=== PATIENT | female | born 1955 | race Caucasian/White ===

== ENCOUNTER 2021-11-17 12:54 | Outpatient (CLI) | payer MEDICARE, SELFPAY ==
--- NOTE | ~2021-11-17 | XR_ITS ---
XR abdomen/kub 1V 11/17/2021 13:16 Indication: Renal stones Procedure: KUB Comparison: No prior studies for comparison. Findings: There are bilateral renal stones, largest located centrally in the right kidney measuring u p to 2.5 cm. There are cholecystectomy clips. Bowel gas pattern nonobstructive. There are pelvic phle boliths. There is a lumbar spondylosis. Impression: 1: Bilateral nephrolithiasis. Reviewed, dictated and finalized at location A. Impression: 1: Bilateral nephrolithiasis.
== END 2021-11-17 12:55 | disposition home or self-care (01) ==
PROVIDERS: PCP Urology; Visit Provider Urology
DX: N20.0 Calculus of kidney (principal)
CPT/HCPCS: 74018

== ENCOUNTER 2021-12-12 08:25 | Outpatient (CLI) | payer MEDICARE, SELFPAY ==
--- NOTE | ~2021-12-12 | XR_ITS ---
XR abdomen/kub 1V 12/12/2021 08:43 Indication: Right kidney stone Procedure: KUB Comparison: 11/17/2021 Findings: Bowel gas pattern is nonobstructive. There are bilateral renal stones. There are cholecyste ctomy clips. Interval placement of right internal ureteral stent. There are multiple right ureteral s tones. Interval resolution of largest dominant stone in the right kidney. Impression: 1: Bilateral renal and multiple right ureteral stones. Right internal ureteral stent in expected posi tion. Reviewed, dictated and finalized at location A. Impression: 1: Bilateral renal and multiple right ureteral stones. Right internal ureteral stent in expected position.
== END 2021-12-12 08:26 | disposition home or self-care (01) ==
PROVIDERS: Visit Provider Urology
DX: N20.0 Calculus of kidney (principal); N20.1 Calculus of ureter; Z96.0 Presence of urogenital implants
CPT/HCPCS: 74018

== ENCOUNTER 2022-05-15 12:04 | Outpatient (CLI) | payer MEDICARE, SELFPAY ==
--- NOTE | ~2022-05-15 | XR_ITS ---
Supine and upright views of the abdomen Clinical history: Kidney stones COMPARISON: 12/12/2021 Findings: Bowel gas pattern is nonspecific. No evidence for obstruction or free air. Possible 8 mm mi d left ureteral stone, adjacent to the L4 vertebral body, not seen in this location on prior exam. No other definite renal stones clearly identified. Cholecystectomy clips present.. Osseous structures a re intact. Impression: Questionable 8 mm left mid ureteral stone. Reviewed, dictated and finalized at location . 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
== END 2022-05-15 12:05 | disposition home or self-care (01) ==
PROVIDERS: Visit Provider Nurse Practitioner Adult Health
DX: N20.1 Calculus of ureter (principal)
CPT/HCPCS: 74018

== ENCOUNTER 2022-05-18 02:37 | Day surgery (SDC) | payer MEDICARE, SELFPAY ==
[2022-05-17 13:03] VITALS: BMI 43.0
--- NOTE | 2022-05-17 13:29 | PC.NURSE ---
Report to the Outpatient Waiting Room, entrance under the green pavilion located off [facility], at time __1030 on date __05/18/22 . Planned Procedure Time: ___1230 . Time changes happen often and if your time is changed the preop area will call you the afternoon before. - You and your visitor will be asked to self-screen and do not enter if you have any COVID symptoms. - Only one visitor is requested with a max of two and NO children visitors are allowed at this time. - The patient visitor may be requested to leave or wait in car when not with patient due to distancing restrictions. - A mask is optional within the hospital at this time. Patients may have clear liquids (water, carbonated beverages, clear teas, apple juice) until 3 hours prior to surgery (0930 AM) with a maximum of 20 ounces. - No food from midnight until time of surgery - Infants may have breast milk until 4 hours before surgery, infant formula 6 hours prior to surgery. - Children will be allowed to drink immediately following surgery. If applicable, please bring a bottle or sippy cup to assist with drinking. Juice, water, soda, and popsicles are readily available. For infants on formula, please bring formula the day of surgery. Pacifiers are allowed. Take the following medications with a SIP of water the morning of surgery: __CITALOPRAM, LAMOTRIGINE__ DO NOT STOP ANY OF YOUR OTHER PRESCRIPTION MEDICATIONS PRIOR TO SURGERY ?EXCEPT THE FOLLOWING Medications to discontinue per physician N/A Date to take last dose Please no make-up, nail icelandic, hairspray, perfume, deodorant, or body powder the day of surgery. No jewelry (including any body piercings) or valuables the day of surgery, leave them at home. Please take a shower or bath the night before, or the morning of, surgery with an antibacterial soap. Wear comfortable, loose fitting clothing. Children are encouraged to wear pajamas. - Jewelry must be removed prior to entering the operating room. Rings and piercings that are not removed may be cut off. - The hospital will not accept responsibility for valuables. - Please leave all valuables, including medications, at home the day of surgery. If you are going home after surgery, a licensed mobile lounge driver or operator must drive you home. - NO public transportation without another adult if you receive anesthesia. - We recommend that an adult stay with you for 24 hours following discharge. - We also recommend that you do not drive, make important decision, drink alcoholic beverages, or take any drugs that were not prescribed by your health care provider for at least 24 hours after your discharge time. For Pediatric surgeries, we recommend two adults accompany the child home. Follow any additional instructions given to you from your surgeon. If you or anyone in your household have experienced Covid symptoms in the past week, please notify your surgeon or the nurse liaison at the phone number below for possible testing. Telephone instructions given to ___PATIENT and asked if any additional questions and then verbalized understanding. Patient advised to call surgeon office or pre surgery nurse liaison [phone] if any additional questions.
[2022-05-18] VITALS (9 sets, daily range): BP systolic 120–130; BP diastolic 61–68; PULSE 70–92; RESP 12–18; TEMP 36.6; O2SAT 93–100
--- NOTE | ~2022-05-18 | XR_ITS ---
EXAMINATION: XR abdomen/kub 1V DATE: 05/18/2022 10:22 INDICATION: Kidney stone. TECHNIQUE: A supine view of the abdomen on 2 radiographs was obtained. COMPARISON: Abdomen radiographs 05/15/2022, 12/12/2021 FINDINGS: There are no dilated loops of bowel. Surgical clips in the right upper quadrant are likely from cholecystectomy. There is a surgical clip in the pelvis. There is a phlebolith in the pelvis. Th ere is a 9 x 4 mm calcification to the left of L4. IMPRESSION: 1. 9 x 4 mm calcification to the left of L4 without change from 05/15/2022 and new from 12/12/2021, whi ch may be a stone in the proximal left ureter. Reviewed, dictated and finalized at location A. 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 9 x 4 mm calcification to the left of L4 without change from 05/15/2022 and n ew from 12/12/2021, which may be a stone in the proximal left ureter.
--- NOTE | 2022-05-18 06:50 | WPDHPUPDATE1 ---
History and Physical Update Update Date/Time: 05/18/22 06:50 History and Physical has been reviewed, including an updated exam of the patient. There are NO changes in the patient's condition. Risks, benefits, and alternatives have been discussed and questions answered. Patient agrees to proceed with procedure.
--- NOTE | 2022-05-18 11:12 | P.PNAN_ITS ---
Anes - Initial Pre Proc Eval Procedure: Operation Date: 05/18/22 12:30 Proposed Procedures p Left Extracorporeal Shock Wave Lithotripsy - Amador Krause MD Date/Time: 05/18/22 11:12 Surgeon: Amador Krause MD Pre Op Diagnosis: left ureteral stones Patient Data Age: 66 Gender: F Height: 1.57 m Weight: 106.3 kg Last Vital Signs Temp 36.6 C 05/18/22 10:31 Pulse 70 05/18/22 10:31 Resp 16 05/18/22 10:31 BP 130/68 05/18/22 10:31 Pulse Ox 97 05/18/22 10:31 O2 Del Method Room Air 05/18/22 10:31 Allergies Allergy/AdvReac Type Severity Reaction Status Date / Time No Known Allergies Allergy Verified 05/18/22 10:23 Home Medications Medication Instructions Recorded Confirmed Type allopurinol 300 mg tablet 300 mg [facility] 05/17/22 05/17/22 History citalopram 40 mg tablet 40 mg [facility] 05/17/22 05/17/22 History glimepiride 4 mg tablet 4 mg QA 05/17/22 05/17/22 History insulin glargine 100 unit/mL (3 40 unit subcut 05/17/22 05/17/22 History mL) subcutaneous pen (Lantus Solostar U-100 Insulin) lamotrigine 150 mg tablet 150 mg [facility] 05/17/22 05/17/22 History lorazepam 0.5 mg tablet 0.5 mg 05/17/22 05/17/22 History metformin 500 mg tablet,extended 500 mg PO [facility] 05/17/22 05/17/22 History release 24 hr nebivolol 10 mg tablet 10 mg 05/17/22 05/17/22 History pantoprazole 40 mg tablet,delayed 40 mg PO [facility] 05/17/22 05/17/22 History release telmisartan 20 mg tablet 20 mg [facility] 05/17/22 05/17/22 History trazodone 50 mg tablet 50 mg 05/17/22 05/17/22 History valacyclovir 1 gram tablet 1,000 mg EVERY OTHER DAY 05/17/22 05/17/22 History Patient hx anesthesia problems: none Family hx anesthesia problems: none Results Review: All pre-operative results and documents have been reviewed as part of the pre- operative evaluation. [facility] Social History Social History Smoking packs per day: 0.5 Smoking cigarettes per day: 10.0 Years smoked: 30 Smoking pack-years: 15.00 Smoking status: Former smoker Tobacco type: cigarettes Second hand tobacco smoke exposure: No Smoking end date: 04/22/07 Substance use: never Substance use type: does not use Living arrangements: alone Spiritual care concerns: No Anes - Eval Final PreProcedure Day of Procedure 05/18/22 11:12 Patient weight: morbidly obese Lungs: clear to auscultation Airway: Mallampati scale class II Neurological: alert and oriented Last oral intake: >/= 8 hours ASA classification: III Emergent: no Anesthetic plan: proceed Anesthesia type and monitoring: general LMA and standard monitoring Results Review: All pre-operative results and documents have been reviewed as part of the pre- operative evaluation. Informed Consent: The patient's anesthetic plan and its attendant risks and benefits were discussed with the patient/family/POA. Questions were solicited and answers provided to the satisfaction of the patient/family/POA.
[2022-05-18] MEDS: ceFAZolin 2 GM/D5W 50 ML 2 GM/50 ML BAG IVPB (11:18)
[2022-05-18 11:31] LABS: INR 1.1; Partial Thromboplastin Time 30.6 SECONDS (22.3-36.8); Prothrombin Time 13.4 Seconds (11.1-14.7)
--- NOTE | 2022-05-18 11:49 | W.PM.PROC2 ---
Procedure Note - Detailed Date of Procedure 05/18/22 Pre-op Diagnosis Left ureteral stone Post-op Diagnosis Same Procedure Performed Left ESWL Surgeon Amador Krause MD Anesthesia General Description of Procedure The patient was brought to the operative suite where she was placed in the supine position on the Dornier lithotripsy table. The focal point of the lithotripter was placed at a 8-9mm left mid-ureteral calculus. A total of 3000 shocks were delivered at a power setting of 6. There appeared to be good fragmentation of the stone. The patient tolerated the procedure well and was taken to the recovery room in good condition. Drains No Packing No Pathology None sent Complications No immediate complications
[2022-05-18] MEDS: LACTATED RINGERS 1,000 ML 30 ML IV CONT ×2 (12:09)
[2022-05-18 12:16] LABS: Glucose Point of Care 108 mg/dl (65-105)
== END 2022-05-18 14:10 | disposition home or self-care (01) ==
PROVIDERS: Visit Provider Urology
PROC: (CPT 50590; principal; 2022-05-18 12:30)
DX: N20.1 Calculus of ureter (principal); Z79.4 Long term (current) use of insulin; Z79.84 Long term (current) use of oral hypoglycemic drugs; Z87.891 Personal history of nicotine dependence; E66.01 Morbid (severe) obesity due to excess calories; Z68.41 Body mass index [BMI] 40.0-44.9, adult
CPT/HCPCS: 50590; 36415; 74018; 82948; 85610; 85730; J0690; J1100; J2250; J2405; J2704; J3010; J7120

== ENCOUNTER 2022-06-05 11:40 | Outpatient (CLI) | payer MEDICARE, SELFPAY ==
--- NOTE | ~2022-06-05 | XR_ITS ---
EXAM: XR abdomen/kub 1V DATE: 06/05/2022 11:58 HISTORY: N20.1 - Calculus of ureter, LEFT SIDE . COMPARISON: 05/18/2022. FINDINGS: Clear lung bases. Cholecystectomy clips. Surgical clip projecting within the pelvic ring. Normal bowel gas pattern. No organomegaly. Pelvic phleboliths and atherosclerotic calcification. Dege nerative change in the lower lumbar spine and bilateral hips. IMPRESSION: No radiographic evidence of nephrolithiasis. Reviewed, dictated and finalized at location K. COMPLIANCE
== END 2022-06-05 11:41 | disposition home or self-care (01) ==
PROVIDERS: Visit Provider Urology
DX: N20.1 Calculus of ureter (principal)
CPT/HCPCS: 74018

== ENCOUNTER 2022-12-17 14:44 | Outpatient (CLI) | payer MEDICARE, SELFPAY ==
--- NOTE | ~2022-12-17 | XR_ITS ---
EXAMINATION: XR abdomen/kub 1V DATE: 12/17/2022 15:02 INDICATION: Left ureteral stone. TECHNIQUE: A supine view of the abdomen on 2 radiographs was obtained. COMPARISON: Abdomen radiographs 06/05/2022 FINDINGS: There are no dilated loops of bowel. There are vascular calcifications in the pelvis. Surgi ange clips in the right upper quadrant are likely from cholecystectomy. IMPRESSION: 1. No visible urolithiasis. Reviewed, dictated and finalized at location E. IMPRESSION: 1. No visible urolithiasis.
== END 2022-12-17 14:45 | disposition home or self-care (01) ==
LOC: ANHIMG 14:49
PROVIDERS: Visit Provider Urology
DX: N20.1 Calculus of ureter (principal)
CPT/HCPCS: 74018

== ENCOUNTER 2024-01-27 11:47 | Outpatient (CLI) | payer BC, MEDICARE, SELFPAY ==
--- NOTE | ~2024-01-27 | XR_ITS ---
XR abdomen/kub 1V Ordering provider: Amador Krause MD History: . FOLLOW UP RIGHT KIDNEY STONE . Comparison: None. FINDINGS: BOWEL: Nonobstructive bowel gas pattern. ORGANOMEGALY: None. SIGNIFICANT PATHOLOGIC CALCIFICATIONS: Stone in the left kidney upper pole. Possible faint calcificat ion at the level of L3 on the right side. OTHER: No free air is seen under the diaphragm. Degenerative the spine. IMPRESSION: NO ACUTE ABDOMINAL FINDINGS. Possible stone in the right paraspinal area at the level of L3. Stone in the left kidney upper pole. Reviewed, dictated and finalized at location A.
== END 2024-01-27 11:48 | disposition home or self-care (01) ==
PROVIDERS: Visit Provider Urology
DX: N20.0 Calculus of kidney (principal)
CPT/HCPCS: 74018